=== PATIENT | male | born 1960 | race Caucasian/White ===

== ENCOUNTER 2018-01-17 22:40 | Emergency (ER) | payer SELFPAY ==
[2018-01-17 23:23] LABS: Bilirubin Negative (Negative); Blood, Urine Trace (Negative); Clarity Clear (Clear); Glucose, Urine (Dipstick) 500 mg/dL (Negative); Leukocyte Negative (Negative); Nitrite Negative (Negative); Protein, Urine (Dipstick) 100 mg/dL (Neg-Trace); Specific Gravity, Urine 1.015 (1.005-1.030); Urobilinogen 0.2 mg/dL (0.2-1.0); pH, Urine 5.5 (5.0-9.0)
[2018-01-17 23:29] LABS: RBC/HPF 0-3 HPF (0-3); Squamous Epithelial None Seen HPF (0-3); WBC/HPF None Seen HPF (0-3)
[2018-01-17 23:30] LABS: Bacteria/HPF None Seen HPF (None Seen)
[2018-01-17 23:31] LABS: Amphetamine Not Detected (NotDetected); Cocaine Metabolite Screen Not Detected (NotDetected); Methamphetamine Not Detected (NotDetected); Opiate Screen Not Detected (NotDetected); Phencyclidine (PCP) Not Detected (NotDetected); THC/Cannabinoid Screen Not Detected (NotDetected)
[2018-01-17 23:32] LABS: Barbiturates Screen Not Detected (NotDetected); Benzodiazepine Screen Detected (NotDetected); Medtox Control Line Valid? VALID (VALID); Methadone Not Detected (NotDetected); Oxycodone Screen Not Detected (NotDetected); Tricyclic Screen Not Detected (NotDetected)
[2018-01-17 23:35] LABS: #Basophils 0.1 thou/uL (0.0-0.2); #Eosinphils 0.2 thou/uL (0.0-0.7); #Monocytes 0.8 thou/uL (0.11-0.59); %Basophils 1.6 % (0.0-1.0); %Lymphocytes 36.4 % (21.0-51.0); %Monocytes 9.9 % (0.0-10.0); ALT (SGPT) 28 U/L (8-55); AST (SGOT) 15 U/L (5-34); Acetaminophen Less than 6.0 mcg/mL (10.0-30.0); Albumin 3.8 g/dL (3.5-5.0); Alcohol Less than 10 mg/dL (Less than 10); Alkaline Phosphatase 76 U/L (40-150); Anion Gap 16 mmol/L (10-20); BUN (Urea Nitrogen) 13 mg/dL (8.4-25.7); Bilirubin, Total 0.2 mg/dL (0.2-1.2); Calc. Creatinine Clearance 0 mL/min (70-130); Calcium 9.6 mg/dL (7.8-10.44); Carbon Dioxide 18 mmol/L (22-29); Chloride 102 mmol/L (98-107); Estimated GFR-MDRD 66; Globulin 3.7 g/dL (2.4-3.5); Glucose 282 mg/dL (70-105); Hemoglobin 16.3 g/dL (14.0-18.0); MDiff Complete? YES; Mean Corpuscular HGB CONC 31.4 g/dL (32.0-36.0); Mean Corpuscular Volume 85.9 fL (78.0-98.0); Mean Platelet Volume 7.9 fL (7.4-10.4); PLT Morphology Comment Appears Adequate; Platelet Clumps SLIGHT; Platelet Count 70 thou/uL (130-400); Protein, Total 7.5 g/dL (6.0-8.3); RBC Distribution Width 12.8 % (11.5-14.5); RBC Morphology Normal; Red Blood Cell (RBC) Count 6.03 mill/uL (4.70-6.10); Salicylate Less than 8.0 mg/dL (15.0-30.0); Sodium 132 mmol/L (136-145); White Blood Cell (WBC) Count 8.1 thou/uL (4.8-10.8)
== END 2018-01-18 05:35 ==
LOC: NAV ERS 22:40
DX: R45.851 Suicidal ideations (principal); D69.6 Thrombocytopenia, unspecified; E11.9 Type 2 diabetes mellitus without complications; E78.5 Hyperlipidemia, unspecified; E78.1 Pure hyperglyceridemia; J45.909 Unspecified asthma, uncomplicated; F32.9 Major depressive disorder, single episode, unspecified; F17.210 Nicotine dependence, cigarettes, uncomplicated; Z79.899 Other long term (current) drug therapy; Z79.84 Long term (current) use of oral hypoglycemic drugs
CPT/HCPCS: 80053; 80306; 80307; 81003; 81015; 85025; 99285

== ENCOUNTER 2018-09-22 13:39 | Emergency (ER) | payer MEDICARE ==
--- NOTE | 2018-09-22 14:23 | RAD ---
Chest 2 views HISTORY: Cough and congestion. COMPARISON: 01/16/2018 FINDINGS: Cardiac silhouette is unremarkable. Pulmonary vasculature upper limits of normal. Mediastin um is midline. No lobar consolidation or evidence of pneumothorax. No pleural fluid visible. Ossification of anterior longitudinal ligament of the thoracic spine on the lateral view is consisten t with diffuse idiopathic skeletal hyperostosis. IMPRESSION: No active cardiopulmonary abnormalities are demonstrated.
== END 2018-09-22 14:19 | disposition home or self-care (01) ==
LOC: NAV ERS 13:39
DX: I10 Essential (primary) hypertension (principal); R05 Cough; E87.1 Hypo-osmolality and hyponatremia; J45.909 Unspecified asthma, uncomplicated; F17.210 Nicotine dependence, cigarettes, uncomplicated; F32.9 Major depressive disorder, single episode, unspecified; Z79.899 Other long term (current) drug therapy; Z79.84 Long term (current) use of oral hypoglycemic drugs
CPT/HCPCS: 71046

== ENCOUNTER 2021-02-25 09:32 | Emergency (ER) | payer MEDICARE | END 2021-02-25 11:00 | disposition home or self-care (01) | LOC: NAV ERS 09:32 | DX: M25.561 Pain in right knee (principal); I10 Essential (primary) hypertension; E11.9 Type 2 diabetes mellitus without complications; E78.5 Hyperlipidemia, unspecified; I25.2 Old myocardial infarction; F17.210 Nicotine dependence, cigarettes, uncomplicated; Z79.899 Other long term (current) drug therapy; Z79.84 Long term (current) use of oral hypoglycemic drugs ==